=== PATIENT | female | born 1990 | race Caucasian/White ===

== ENCOUNTER 2016-12-10 04:56 | Emergency (ER) | payer SELFPAY ==
[2016-12-10 05:11] VITALS: BP 130/74; PULSE 103; RESP 16; TEMP 97.7; O2SAT 96
--- NOTE | 2016-12-10 05:18 | EDPHY ---
H & P Stated Complaint: back pain on R side - right finger lac HPI/ROS: HPI CHIEF COMPLAINT: I punched a tree with her right hand, both my kidneys hurt. HISTORY OF PRESENT ILLNESS: This patient is a 26-year-old female, presents emergency room by private vehicle after she states she punched a tree and sustained a laceration to her knuckle. Additionally she tells me she had alcohol to drink this evening. She states she had multiple shots of liquor. She also tells me that she thinks she may have a urinary tract infection as both of her kidneys hurt. She denies fever vomiting. Denies abdominal pain denies chest pain or shortness of breath. Past Medical History: Alcoholism, homeless Past Surgical History: No recent surgical history Social History: Daily alcohol use, homeless, smokes marijuana, denies other illicit drugs. Family History: Noncontributory ROS REVIEW OF SYSTEMS: A comprehensive 10 point review of systems is otherwise negative aside from elements mentioned in the history of present illness. Exam Constitutional triage nursing summary reviewed, vital signs reviewed, awake/ alert. Eyes normal conjunctivae and sclera, EOMI, PERRLA. HENT normal inspection, atraumatic, moist mucus membranes, no epistaxis, neck supple/ no meningismus, no raccoon eyes. Respiratory clear to auscultation bilaterally, normal breath sounds, no respiratory distress, no wheezing. Cardiovascular rate normal, regular rhythm, no murmur, no edema, distal pulses normal. Gastrointestinal soft, non-tender, no rebound, no guarding, normal bowel sounds, no distension, no pulsatile mass. Genitourinary no CVA tenderness. Musculoskeletal right hand: Neurovascularly intact. Good radial pulse, good sensation, good cap refill. Good furniture dipper strength. No hand swelling. Dry blood present. no midline vertebral tenderness, full range of motion, no calf swelling, no tenderness of extremities, no meningismus, good pulses, neurovascularly intact. Skin pink, warm, & dry, no rash, skin atraumatic. Neurologic awake, alert and oriented x 3, AAOx3, moves all 4 extremities equally, motor intact, sensory intact, CN II-XII intact, normal cerebellar, normal vision, normal speech. Psychiatric normal mood/affect. Heme/Lymph/Immune no lymphadenopathy. Differential Diagnosis: Includes but is not limited to in a particular order right hand laceration, right hand contusion, soft tissue injury, urinary tract infection, pyelonephritis, . Medical Decision Making: Plan for this patient check urinalysis, urine test. Basic blood work. Clean the right hand to see if there is any suturable laceration. Re-evaluation: [id number]: This patient's right hand was cleaned. Noted over her 2nd digit dorsal side Nuckle, there is a 1 cm laceration. This was copiously cleaned and irrigated explored for foreign bodies. No tendon injury no arterial injury. Patient had this repaired with 1 suture placed. She tolerated well. His neurovascular intact. She understands have her sutures removed in 10 days. Laceration Repair Procedure: Verbal Consent was obtained, Under sterile conditions, The patient had lidocaine with epinephrine used approximately 1ccs to local anesthetize the Right hand second digit dorsal aspect <1cm Laceration. The wound was copiously irrigated with sterile fluid, the wound was explored for foreign bodies there were none visualized, the wound was explored with a sterile glove to the base. There are no deep structures involved, including no arterial injury. ONE 6.O prolene interrupted Sutures were placed in this patient's laceration. She had good close approximation of the wound edges. She Tolerated this well. 0610: Alcohol noted to 292. Patient is stable gait. Ambulatory. No ataxia. Safe for discharge. It is noted LFTs are elevating which due to alcoholism. No evidence of blood in her urine or urinary tract infection. Safe for discharge. Understands to come back and have her sutures removed in 10 days. Source: Patient - Personal History LMP (Females 10-55): 22-28 Days Ago Current Tetanus/Diphtheria Vaccine: Unsure Current Tetanus Diphtheria and Acellular Pertussis (TDAP): Unsure - Medical/Surgical History Hx Asthma: No Hx Chronic Respiratory Disease: No Hx Diabetes: No Hx Cardiac Disease: No Hx Renal Disease: No Hx Cirrhosis: No Hx Alcoholism: No Hx HIV/AIDS: No Hx Splenectomy or Spleen Trauma: No Other PMH: R clavicle fx/sx, - Social History Smoking Status: Current every day smoker Constitutional: Initial Vital Signs Temperature (C) 36.5 C 12/10/16 04:58 Heart Rate 103 H 12/10/16 04:58 Respiratory Rate 16 12/10/16 04:58 Blood Pressure 130/74 H 12/10/16 04:58 O2 Sat (%) 96 07/08/17 04:58 O2 Delivery Mode Room Air Allergies/Adverse Reactions: No Known Allergies Allergy (Unverified 09/14/15 22:46) Home Medications: Medication Instructions Recorded NK [No Known Home Meds] 12/10/16 Medical Decision Making - Data Points Laboratory Results: Laboratory Results 12/10/16 05:47 12/10/16 05:47 12/10/16 12/10/16 12/10/16 05:47 05:47 05:38 WBC 5.61 10^3/uL 10^3/uL (3.80-9.50) RBC 4.68 10^6/uL 10^6/uL (4.18-5.33) Hgb 15.0 g/dL g/dL (12.6-16.3) Hct 44.3 % % (38.0-47.0) MCV 94.7 fL fL (81.5-99.8) MCH 32.1 pg pg (27.9-34.1) MCHC 33.9 g/dL g/dL (32.4-36.7) RDW 13.2 % % (11.5-15.2) Plt Count 215 10^3/uL 10^3/uL (150-400) MPV 9.8 fL fL (8.7-11.7) Neut % (Auto) 45.8 % % (39.3-74.2) Lymph % (Auto) 43.1 % % (15.0-45.0) [place] % (Auto) 9.6 % % (4.5-13.0) Eos % (Auto) 0.4 % L % (0.6-7.6) Baso % (Auto) 0.7 % % (0.3-1.7) Nucleat RBC Rel Count 0.0 % % (0.0-0.2) Absolute Neuts (auto) 2.57 10^3/uL 10^3/uL (1.70-6.50) Absolute Lymphs (auto) 2.42 10^3/uL 10^3/uL (1.00-3.00) Absolute Monos (auto) 0.54 10^3/uL 10^3/uL (0.30-0.80) Absolute Eos (auto) 0.02 10^3/uL L 10^3/uL (0.03-0.40) Absolute Basos (auto) 0.04 10^3/uL 10^3/uL (0.02-0.10) Absolute Nucleated RBC 0.00 10^3/uL 10^3/uL (0-0.01) Immature Gran % 0.4 % % (0.0-1.1) Immature Gran # 0.02 10^3/uL 10^3/uL (0.00-0.10) Sodium 152 mEq/L H mEq/L (134-144) Potassium 4.1 mEq/L mEq/L (3.5-5.2) Chloride 117 mEq/L H mEq/L (97-110) Carbon Dioxide 18 mEq/l L mEq/l (22-31) Anion Gap 17 mEq/L H mEq/L (8-16) BUN 8 mg/dL mg/dL (7-23) Creatinine 0.6 mg/dL mg/dL (0.6-1.0) Estimated GFR > 60 Glucose 85 mg/dL mg/dL (70-100) Calcium 9.3 mg/dL mg/dL (8.5-10.4) Total Bilirubin 0.7 mg/dL mg/dL (0.1-1.4) AST 314 IU/L H IU/L (14-46) ALT 314 IU/L H IU/L (9-52) Alkaline Phosphatase 48 IU/L IU/L (38-126) Total Protein 8.3 g/dL H g/dL (6.3-8.2) Albumin 4.6 g/dL g/dL (3.5-5.0) Urine Color YELLOW Urine Appearance CLEAR Urine pH 5.0 (5.0-7.5) Ur Specific [place] 1.008 (1.002-1.030) Urine Protein NEGATIVE (NEGATIVE) Urine Ketones NEGATIVE (NEGATIVE) Urine Blood 1+ H (NEGATIVE) Urine Nitrate NEGATIVE (NEGATIVE) Urine Bilirubin NEGATIVE (NEGATIVE) Urine Urobilinogen NEGATIVE EU EU (0.2-1.0) Ur Leukocyte Esterase NEGATIVE (NEGATIVE) Urine RBC 3-5 /hpf H /hpf (0-3) Urine WBC NONE SEEN /hpf /hpf (0-3) Ur Epithelial Cells TRACE /lpf /lpf (NONE-1+) Urine Glucose NEGATIVE (NEGATIVE) Ethyl Alcohol 292 mg/dL H mg/dL (0-10) Departure - Departure Disposition: Home, Routine, Self-Care Clinical Impression: Laceration Contusion, hand Qualifiers: Encounter type: initial encounter Laterality: right Qualified Code(s): S60.221A - Contusion of right hand, initial encounter Alcohol intoxication Qualifiers: Complication of substance-induced condition: uncomplicated Qualified Code(s): F10.920 - Alcohol use, unspecified with intoxication, uncomplicated Condition: Good Instructions: Care For Your Stitches (ED), Laceration (ED) Additional Instructions: 1. Keep your wound clean, protected.. 2. You need to have your1 sutures removed in 10 days. 3. Return emergency room if you have any further symptoms questions or concerns you may come back here to have your suture removed. Referrals: NONE *PRIMARY CARE P,. [Primary Care Provider] - As per Instructions
[2016-12-10 05:48] LABS: COLOR YELLOW; LEUKOCYTE ESTERASE,URINE NEGATIVE (NEGATIVE); NITRITE,URINE NEGATIVE (NEGATIVE)
[2016-12-10 05:56] LABS: WBC,URINE NONE SEEN /hpf (0-3)
[2016-12-10 05:59] LABS: % IMMATURE GRANULYOCYTES 0.4 % (0.0-1.1); ABSOLUTE IMMATURE GRANULOCYTES 0.02 10^3/uL (0.00-0.10); ADD DIFF? NO; ADD MORPH? NO; ADD SCAN? NO; ATYPICAL LYMPHOCYTE FLAG 40 (0-99); FRAGMENT RBC FLAG 0 (0-99); HEMATOCRIT 44.3 % (38.0-47.0); LEFT SHIFT FLG 0 (0-99); LIPEMIA HEMOLYSIS FLAG 90 (0-99); MEAN CELL HEMOGLOBIN 32.1 pg (27.9-34.1); MEAN CELL HEMOGLOBIN CONCENTR. 33.9 g/dL (32.4-36.7); MEAN CELL VOLUME 94.7 fL (81.5-99.8); MEAN PLATELET VOLUME 9.8 fL (8.7-11.7); PLATELET CLUMPS FLAG 0 (0-99); PLATELET COUNT 215 10^3/uL (150-400); RED BLOOD CELL COUNT 4.68 10^6/uL (4.18-5.33); RED CELL DISTRIBUTION WIDTH 13.2 % (11.5-15.2)
[2016-12-10 06:06] LABS: ALANINE AMINOTRANSFERASE 314 IU/L (9-52); ALBUMIN 4.6 g/dL (3.5-5.0); ALKALINE PHOSPHATASE 48 IU/L (38-126); ANION GAP 17 mEq/L (8-16); ASPARTATE AMINOTRANSFERASE 314 IU/L (14-46); BILIRUBIN,TOTAL 0.7 mg/dL (0.1-1.4); CALCIUM 9.3 mg/dL (8.5-10.4); CARBON DIOXIDE 18 mEq/l (22-31); CHLORIDE 117 mEq/L (97-110); CREATININE 0.6 mg/dL (0.6-1.0); ETHANOL SERUM 292 mg/dL (0-10); GLOMERULAR FILTRATION RATE > 60; GLUCOSE 85 mg/dL (70-100); POTASSIUM 4.1 mEq/L (3.5-5.2); SODIUM 152 mEq/L (134-144); TOTAL PROTEIN 8.3 g/dL (6.3-8.2)
[2016-12-10] MEDS ORDERED: TDAP ADULT 0.5 ML INJ (BOOSTRIX) IM ONE (06:07)
== END 2016-12-10 06:46 | disposition home or self-care (01) ==
PROC: 0HQFXZZ Repair Right Hand Skin, External Approach (ICD-10-PCS; principal; 2016-12-10)
DX: S61.411A Laceration without foreign body of right hand, initial encounter (principal); F10.920 Alcohol use, unspecified with intoxication, uncomplicated; F17.200 Nicotine dependence, unspecified, uncomplicated; Z23 Encounter for immunization; W22.09XA Striking against other stationary object, initial encounter
CPT/HCPCS: G0480

== ENCOUNTER 2017-05-23 20:54 | Emergency (ER) | payer SELFPAY ==
[2017-05-23 21:09] VITALS: BP 135/100; PULSE 106; RESP 16; TEMP 97.9; O2SAT 96
[2017-05-23] MEDS ORDERED: IBUPROFEN 800 MG TAB PO ONE (21:19)
[2017-05-23] MEDS ORDERED: TDAP ADULT 0.5 ML INJ (BOOSTRIX) IM ONE (21:19)
--- NOTE | 2017-05-23 21:19 | EDPHY ---
H & P Stated Complaint: pain blistering on L 3rd/4th/5th fingers after falling into a fire 3 days a Time Seen by Provider: 05/23/17 21:36 HPI/ROS: HPI: This is a 26-year-old female presents with Chief Complaint: burn on fingers Location:left fingers Quality: burn Duration: 2-3 days ago Signs and Symptoms: No bleeding, no radiation, no numbness, no weakness, no tingling, + decreased range of motion, + swelling, + pain Timing: Sudden, improving Severity: [id number] Context: Patient is right-hand dominant, accidentally tripped and fell forward on Monday using her left hand to stop her fall by touching a burning wood log. She felt immediate pain. Tetanus up to date. She has been applying mushroom salve to the [place] daily. She is most concerned with the blisters and wants to know if she can pop the blisters. Modifying Factors: see above Comment: ROS: see HPI Constitutional: No fever, no chills, no weight loss Eyes: No blurred vision Respiratory: No shortness of breath, no cough Cardiovascular: No chest pain Gastrointestinal: No nausea, no vomiting no diarrhea Genitourinary: No dysuria Extremities: No myalgias Neurologic: No weakness, no numbness Skin: No rashes Hematologic: No bruising, no bleeding MEDICAL/SURGICAL/SOCIAL HISTORY: Medical history: Generally healthy. Does not take any regular medications. Surgical history: Denies Social history: Employed as a line construction supervisor CONSTITUTIONAL: Well-appearing young adult female, awake and alert, no obvious distress HEENT: Atraumatic and normocephalic, PERRL, EOMI. Tympanic membranes clear. Oropharynx clear, no exudate and moist pink mucosa. Airway patent. No lymphadenopathy. No meningismus. Cardiovascular: Normal S1/S2, regular rate, regular rhythm, without murmur rub or gallop. PULMONARY/CHEST: Symmetrical and nontender. Clear to auscultation bilaterally. Good air movement. No accessory muscle usage. ABDOMEN: Soft, nondistended, nontender, no rebound, no guarding, no peritoneal signs, no masses or organomegaly. No CVAT. EXTREMITIES: 2/2 radial pulses, vault person strength 5/5, left hand palmar aspect- blisters covering < 1% noted over PIP joints on 2-4th digits. no surrounding erythema/warmth. mild decreased PIP flexion. DIP/MCP DIP/PIP/MCP touch sensation /flexion/extension intact. Good capillary refill. no deformities, no clubbing, no cyanosis or edema. NEUROLOGICAL: no focal neuro deficits. GCS 15. SKIN: Warm and dry, no erythema. no rash. Good capillary refill. Source: Patient Exam Limitations: No limitations - Personal History Current Tetanus Diphtheria and Acellular Pertussis (TDAP): Yes - Medical/Surgical History Hx Asthma: No Hx Chronic Respiratory Disease: No Hx Diabetes: No Hx Cardiac Disease: No Hx Renal Disease: No Hx Cirrhosis: No Hx Alcoholism: No Hx HIV/AIDS: No Hx Splenectomy or Spleen Trauma: No Other PMH: R clavicle fx/sx, add - Social History Smoking Status: Current some day smoker Constitutional: Initial Vital Signs Temperature (C) 36.6 C 05/23/17 21:05 Heart Rate 106 H 05/23/17 21:05 Respiratory Rate 16 05/23/17 21:05 Blood Pressure 135/100 H 05/23/17 21:05 O2 Sat (%) 96 05/23/17 21:05 O2 Delivery Mode Room Air Allergies/Adverse Reactions: No Known Allergies Allergy (Verified 05/23/17 21:09) Home Medications: Medication Instructions Recorded Neomycn/Bacitrc/Polymyx/Pramox 1 cassie TP DAILY #30 oint...g. 05/23/17 [NEOSPORIN + PAIN RELIEF OINT] Medical Decision Making ED Course/Re-evaluation: Local wound care provided: Wash with mild soap and water; bacitracin; Xeroform and gauze applied. Ibuprofen given. No signs of neurovascular compromise/tenting of skin/compartment syndrome/ extremities and joints examined above and below area of concern and are neurovascularly intact. Burn less than 1%; second degree in nature. No signs of cellulitis. Advised local care. Pain currently controlled. This patient was seen under the supervision of my secondary supervising physician. I evaluated care for this patient independently. Discussed this patient with Dr. Ambrocio who did not see the patient. Differential Diagnosis: Differential diagnosis includes but is not limited to 1st degree burn, second- degree burn, third-degree burn, cellulitis, neurovascular compromise. Departure - Departure Disposition: Home, Routine, Self-Care Clinical Impression: 2nd deg burn mult finger Condition: Good Instructions: Second Degree Burn (ED) Additional Instructions: Keep the dressing dry and in place for 48 hours. After 48 hours, you may remove the dressing; wash the site daily with mild soap and water; then pat dry; apply topical antibiotic ointment and cover with clean sterile dressing. Repeat this process daily until fully healed. Do not pop blisters. Take Ibuprofen 600 mg every 8 hours with food as needed for pain. Apply cool compresses for 30 minutes at a time; 2-3 times per day for the next 1 -2 days. Referrals: [facility],. [Clinic] - As per Instructions Prescriptions: Neomycn/Bacitrc/Polymyx/Pramox [NEOSPORIN + PAIN RELIEF OINT] 1 cassie TP DAILY # 30 oint...g.
== END 2017-05-23 21:59 | disposition home or self-care (01) ==
PROC: 2W29X4Z Dressing of Left Upper Extremity using Bandage (ICD-10-PCS; principal; 2017-05-23)
DX: T23.232A Burn of second degree of multiple left fingers (nail), not including thumb, initial encounter (principal); F17.200 Nicotine dependence, unspecified, uncomplicated; T31.0 Burns involving less than 10% of body surface; X19.XXXA Contact with other heat and hot substances, initial encounter

== ENCOUNTER 2017-07-18 16:35 | Emergency (ER) | payer MEDICAID ==
[2017-07-18 16:41] VITALS: RESP 16; O2SAT 96
[2017-07-18] MEDS ORDERED: HYDROmorphONE/DILAUDID 1 MG/ML INJ IM ONE (16:51)
--- NOTE | 2017-07-18 16:54 | EDPHY ---
H & P Stated Complaint: R knee injury Time Seen by Provider: 07/18/17 16:46 HPI/ROS: CHIEF COMPLAINT: Right knee pain HISTORY OF PRESENT ILLNESS: Patient is a 26-year-old female who comes to the emergency department complaining of right knee pain. She states that she slipped on her neighbor's driveway 5 days ago and twisted her right knee in route. She has pain in the medial aspect of her knee. She did not fall on her knee. She denies injuries to her ankle hip or other extremities. REVIEW OF SYSTEMS: Constitutional: denies: chills, fever, recent illness, recent injury EENTM: denies: blurred vision, double vision, nose congestion Respiratory: denies: cough, shortness of breath Cardiac: denies: chest pain, irregular heart rate, lightheadedness, palpitations Gastrointestinal/Abdominal: denies: abdominal pain, diarrhea, nausea, vomiting, blood streaked stools Genitourinary: denies: dysuria, frequency, hematuria, pain Musculoskeletal: See HPI Skin: denies: lesions, rash, jaundice, bruising Neurological: denies: headache, numbness, paresthesia, tingling, dizziness, weakness Hematologic/Lymphatic: denies: blood clots, easy bleeding, easy bruising Immunologic/allergic: denies: HIV/AIDS, transplant EXAM: GENERAL: Well-appearing, well-nourished and in no acute distress. HEAD: Atraumatic, normocephalic. EYES: Pupils equal round and reactive to light, extraocular movements intact, sclera anicteric, conjunctiva are normal. ENT: TMs normal, nares patent, oropharynx clear without exudates. Moist mucous membranes. NECK: Normal range of motion, supple without lymphadenopathy or JVD. LUNGS: Breath sounds clear to auscultation bilaterally and equal. No wheezes rales or rhonchi. HEART: Regular rate and rhythm without murmurs, rubs or gallops. ABDOMEN: Soft, nontender, normoactive bowel sounds. No guarding, no rebound. No masses appreciated. BACK: No CVA tenderness, no spinal tenderness, step-offs or deformities EXTREMITIES: Right knee pain immediately with palpation, no laxity with anterior-posterior drawer testing. some laxity with lateral drawer and pain. Able to straight leg completely. NEUROLOGICAL: Cranial nerves II through XII grossly intact. Normal speech, normal gait. 5/5 strength, normal movement in all extremities, normal sensation PSYCH: Normal mood, normal affect. SKIN: Warm, dry, normal turgor, no visible rashes or lesions. Source: Patient Exam Limitations: No limitations - Personal History LMP (Females 10-55): 8-14 Days Ago Current Tetanus/Diphtheria Vaccine: Unsure Current Tetanus Diphtheria and Acellular Pertussis (TDAP): Unsure - Medical/Surgical History Hx Asthma: No Hx Chronic Respiratory Disease: No Hx Diabetes: No Hx Cardiac Disease: No Hx Renal Disease: No Hx Cirrhosis: No Hx Alcoholism: No Hx HIV/AIDS: No Hx Splenectomy or Spleen Trauma: No Other PMH: R clavicle fx/sx, add, - Family History Significant Family History: No pertinent family hx - Social History Smoking Status: Current every day smoker Alcohol Use: Sober Drug Use: None Constitutional: Initial Vital Signs Temperature (C) 37.1 C 07/18/17 16:39 Heart Rate 80 07/18/17 16:39 Respiratory Rate 16 07/18/17 16:39 Blood Pressure 133/87 H 07/18/17 16:39 O2 Sat (%) 96 07/18/17 16:39 O2 Delivery Mode Room Air Allergies/Adverse Reactions: No Known Allergies Allergy (Verified 07/18/17 16:38) Home Medications: Medication Instructions Recorded Hydrocodone/APAP 5/325 [[place] 1 - 2 tab PO Q4H PRN #14 tab 07/18/17 5/325 (RX)] Medical Decision Making - Diagnostics Imaging Results: Imaging Impressions Knee X-Ray 07/18/17 16:42 Impression: No evidence for acute osseous abnormality right knee. Imaging: Discussed imaging studies w/ timing inspector Radiologist ED Course/Re-evaluation: We reviewed the patient's x-rays which are reassuring. I will place her in a straight leg brace and have her follow up with Orthopedics. She understands and agrees with this plan. She is asking for pain medication. Differential Diagnosis: Partial list of the Differential diagnosis considered include but were not limited to; fracture, meniscus injury, collateral ligamentous injury and although unlikely based on the history and physical exam, I also considered dislocation, patella fracture. I discussed these differential diagnoses and the plan with the patient as well as the usual and expected course. The patient understands that the diagnosis is provisional and that in medicine we are not always correct and that further workup is often warranted. Usual and customary warnings were given. All of the patient's questions were answered. The patient was instructed to return to the emergency department should the symptoms at all worsen or return, otherwise to followup with the physician as we discussed. - Data Points Medications Given: Discontinued Medications Hydromorphone HCl (Dilaudid) 1 mg IM EDNOW ONE Stop: 07/18/17 16:52 Last Admin: 07/18/17 16:55 Dose: 1 mg Departure - Departure Disposition: Home, Routine, Self-Care Clinical Impression: Right knee injury Qualifiers: Encounter type: initial encounter Qualified Code(s): S89.91XA - Unspecified injury of right lower leg, initial encounter Condition: Fair Instructions: Knee Pain (ED) Referrals: NONE *PRIMARY CARE P,. [Primary Care Provider] - As per Instructions James Salas MD [Medical Doctor] - 5-7 days, call for appt. Prescriptions: Hydrocodone/APAP 5/325 [[place] 5/325 (RX)] 1 - 2 tab PO Q4H PRN #14 tab PRN Reason: Pain, Moderate
[2017-07-18 18:11] VITALS: BP 122/74; PULSE 74; TEMP 97.9
== END 2017-07-18 18:11 | disposition home or self-care (01) ==
DX: S89.91XA Unspecified injury of right lower leg, initial encounter (principal); F17.200 Nicotine dependence, unspecified, uncomplicated; W18.40XA Slipping, tripping and stumbling without falling, unspecified, initial encounter; Y92.014 Private driveway to single-family (private) house as the place of occurrence of the external cause
CPT/HCPCS: J1170; L1830

== ENCOUNTER 2018-05-05 11:32 | Emergency (ER) | payer MEDICAID ==
[~2018-05-05 11:32] MED LIST: CEPHALEXIN 500 MG CAP PO SCH
--- NOTE | 2018-05-05 13:17 | EDPHY ---
H & P Time Seen by Provider: 05/05/18 13:01 HPI/ROS: HPI Foot pain. 27-year-old female on foot. This patient complains of bilateral pain and irritation to both feet but the right foot being greater than the left foot. She complains of pain mostly being on the ventral aspect involving the pads of her toes and her distal metatarsal area. She is homeless. She states that she cannot remember the last time she took shower. She has been living on [address] and states that her socks and shoes have been dirty and wet. There is no history of trauma. She has not had a fever. ROS: Constitutional: No fever, no chills. No weakness. Eyes: No discharge. No changes in vision. ENT: No sore throat. No nasal congestion or rhinorrhea. Respiratory: No cough. No shortness of breath. Cardiac: No chest pain, no palpitations. Gastrointestinal: No abdominal pain, no vomiting, no diarrhea. Genitourinary: No hematuria. No dysuria or increased frequency with urination. Musculoskeletal: No back pain. No neck pain. As above. Skin: No rashes. As above. Neurological: No headache. No focal weakness or altered sensation. Past medical history: Surgery for a right clavicle fracture. ADD. Social history: Smoker. History of substance abuse. Lives on the [address]. Here by herself currently. Physical Exam: General Appearance: Alert, no distress, dirty in appearance. This patient is responding to questions appropriately and in full sentences. This patient appears well-hydrated and well-nourished. Eyes: Pupils equal and round no pallor or injection. No lid edema, erythema or injection. Right foot exam: Significant for diffuse erythema involving the ventral metatarsal phalangeal joint area of the foot and the pads of all digits. There is mild swelling associated with this and warmth. No abscess identified. The skin is intact. The right foot is neurovascularly intact. No lacerations or abrasions noted. The area of erythema is tender on palpation. There is no sign of gangrene. Left foot exam: Similar to the right foot but not as bad. Erythema involving the pads of her toes and the balls of the feet, metatarsal phalangeal joint area. Not as tender on palpation. No abscess. The skin is intact. No lacerations or abrasions. The left foot is neurovascularly intact. There is no sign of gangrene. Neurological: Motor sensory function is grossly intact. Cranial nerves are normal. Antalgic gait secondary to pain walking on her right foot. Skin: Warm and dry, no rashes. As above. Extremities are symmetrical. All joints range without pain or impingement except noted above. Psychiatric: No agitation. No depression. Database: EKG: Imaging: Right foot x-ray series: Negative for fracture, subluxation, dislocation. No evidence of osteomyelitis. Interpreted by me. Procedures: Emergency department course: Triage vital signs reviewed. She is mildly tachycardic. Otherwise vital signs are normal. She is afebrile. She was given 600 mg of ibuprofen. X-rays to be obtained of the right foot to evaluate for possible osteomyelitis. The patient' s presentation is consistent with trench foot. Both of her feet will be thoroughly but gently cleansed with warm soapy water. They will be dried thoroughly. She will be provided with dry socks. I will discussed with pharmacy prescribing her a broad-spectrum antibiotic with anti pseudomonal coverage that can be filled through our assistance program. Patient re-evaluated at 2:40 p.m., resting comfortably in watching TV. Results of her x-rays discussed with her. I will put her on an antibiotic. I discussed this with our pharmacists. Given her homeless situation and concern about reliability of taking the medication we will start her on Levaquin. This will provide anti pseudomonal covered as well as broad-spectrum again staff and to some extent strep. It is also once daily dosing which I think gives us the best possibility that she will be compliant with it. She feels comfortable going home at this time. Her feet a been washed/cleansed. She has been provided with dry socks. I will have her follow up at the [facility] walk- in clinic on Monday for re-evaluation. Return to emergency department precautions reviewed with her. All of her questions were answered. She was discharged from the emergency department in good condition. Differential Diagnosis: The differential diagnosis on this patient includes but is not limited to trench foot. This represents a partial list of diagnoses considered. These considerations are based on history, physical exam, past history, reassessment and diagnostic testing. Smoking Status: Current every day smoker Constitutional: Initial Vital Signs Temperature (C) 36.4 C 05/05/18 11:34 Heart Rate 104 H 05/05/18 11:34 Respiratory Rate 18 05/05/18 11:34 Blood Pressure 124/83 H 05/05/18 11:34 O2 Sat (%) 93 05/05/18 11:34 O2 Delivery Mode Room Air Allergies/Adverse Reactions: No Known Allergies Allergy (Verified 05/05/18 11:33) Home Medications: Medication Instructions Recorded Cephalexin [Keflex (*)] 500 mg PO Q6 8 Days cap 05/05/18 levOFLOXACIN [levAQUIN (*)] 750 mg PO DAILY #8 tab 05/05/18 Medical Decision Making - Data Points Medications Given: Discontinued Medications Cephalexin HCl (Keflex) 500 mg PO EDNOW ONE PRN Reason: Protocol Stop: 05/05/18 13:20 Last Admin: 05/05/18 13:24 Dose: 500 mg Ibuprofen (Motrin) 600 mg PO EDNOW ONE Stop: 05/05/18 13:19 Last Admin: 05/05/18 13:24 Dose: 600 mg Point of Care Test Results: Urine Collection Date 05/05/18 Collection Time 13:30 HCG Results Negative Departure - Departure Disposition: Home, Routine, Self-Care Clinical Impression: Trenchfoot Condition: Good Instructions: Frostbite (ED) Additional Instructions: Read and follow provided instructions. Follow-up with your primary care physician in 1-2 days for re-evaluation. Take antibiotic, starting today through entire course of treatment. Ibuprofen dosin mg every 6 hours with meals for the next 3 days only. Take only as needed for pain. Return to the emergency department for worsening symptoms or other serious concerns. Referrals: [facility],. [Clinic] - As per Instructions Prescriptions: Cephalexin [Keflex (*)] 500 mg PO Q6 8 Days cap levOFLOXACIN [levAQUIN (*)] 750 mg PO DAILY #8 tab
[2018-05-05] MEDS ORDERED: IBUPROFEN 600 MG TAB PO ONE (13:18)
[2018-05-05] MEDS ORDERED: CEPHALEXIN 500 MG CAP PO ONE (13:19)
[2018-05-05 15:44] VITALS: BP 118/65
== END 2018-05-05 15:45 | disposition home or self-care (01) ==
DX: T69.021A Immersion foot, right foot, initial encounter (principal); Z59.0 Homelessness